=== PATIENT | male | born 1945 | race Caucasian/White ===

== ENCOUNTER 2018-10-05 17:09 | Emergency (ER) | payer MEDICARE, OTHER ==
[2018-10-05 17:22] VITALS: BP 141/83
--- NOTE | 2018-10-05 17:41 | ER Document Report ---
ED Medical Screen (RME) - General Chief Complaint: Headache Stated Complaint: HEADACHE, NECK NUMBNESS Time Seen by Provider: 10/05/18 17:25 Primary Care Provider: JAMES MCDONNELL MD [Primary Care Provider] - Follow up as needed Mode of Arrival: Ambulatory Information source: Patient Notes: 73-year-old male presents to ED for complex migraines with a headache for 8 days with pain down his neck headache tightness in the right side of his jaw numbness to his right arm and leg sometimes the last 3 minutes sometimes up to 10 minutes and there off and on for the last 8 days sometimes he has as many as 2 a day. He states he has a history of A. fib and complex migraines but he has not seen a neurologist in at least 20 years. Blood work and head CT have been ordered patient is neurologically intact at this time. I have greeted and performed a rapid initial assessment of this patient. A comprehensive ED assessment and evaluation of the patient, analysis of test results and completion of medical decision making process will be conducted by an additional ED providers. TRAVEL OUTSIDE OF THE [place] IN LAST 30 DAYS: No - Related Data Allergies/Adverse Reactions: Penicillins Allergy (Verified 01/03/15 21:03) HIVES, ITCHING diphenhydramine HCl [From Benadryl] Adverse Reaction (Verified 01/03/15 21:03) Hyperactivity doxycycline [Doxycycline] Adverse Reaction (Verified 01/03/15 21:03) N/V AMNESIA sulfamethoxazole [From Septra] Adverse Reaction (Verified 01/03/15 21:03) NAUEOUS trimethoprim [From Septra] Adverse Reaction (Verified 01/03/15 21:03) NAUEOUS Past Medical History - Past Medical History Cardiac Medical History: Denies: Hx Heart Attack, Hx Hypertension Pulmonary Medical History: Denies: Hx Asthma Neurological Medical History: Denies: Hx Cerebrovascular Accident, Hx Seizures GI Medical History: Reports: Hx Ulcer - 1986. Denies: Hx Hepatitis, Hx Hiatal Hernia Infectious Medical History: Denies: Hx Hepatitis Past Surgical History: Denies: Hx Open Heart Surgery, Hx Pacemaker - Immunizations Hx Diphtheria, Pertussis, Tetanus Vaccination: No Physical Exam - Vital signs Vitals: Temp Pulse Resp BP Pulse Ox 98.3 F 70 16 141/83 H 96 10/05/18 17:21 10/05/18 17:21 10/05/18 17:21 10/05/18 17:21 10/05/18 17:21 Course - Vital Signs Vital signs: Temp Pulse Resp BP Pulse Ox 98.3 F 70 16 141/83 H 96 10/05/18 17:21 10/05/18 17:21 10/05/18 17:21 10/05/18 17:21 10/05/18 17:21 Doctor's Discharge - Discharge Referrals: JAMES MCDONNELL MD [Primary Care Provider] - Follow up as needed
[2018-10-05 18:16] LABS: ABSOLUTE EOSINOPHILS # (AUTO) 0.1 10^3/uL (0.0-0.6); ABSOLUTE LYMPHOCYTES (AUTO) 1.4 10^3/uL (0.5-4.7); ABSOLUTE MONOCYTES (AUTO) 0.5 10^3/uL (0.1-1.4); ABSOLUTE NEUT (AUTO) 2.7 10^3/uL (1.7-8.2); BASOPHILS % (AUTO) 0.9 % (0-2); EOSINOPHILS % (AUTO) 1.1 % (0-6); HEMATOCRIT 40.5 % (37.9-51.0); HEMOGLOBIN 13.9 g/dL (13.5-17.0); LYMPHOCYTES % (AUTO) 30.8 % (13-45); MEAN CORPUSCULAR HEMOGLOBIN 31.1 pg (27.0-33.4); MEAN CORPUSCULAR HGB CONC 34.4 g/dL (32.0-36.0); MEAN CORPUSCULAR VOLUME 91 fl (80-97); MONOCYTES % (AUTO) 10.2 % (3-13); PLATELET COUNT 266 10^3/uL (150-450); RED BLOOD COUNT 4.48 10^6/uL (4.35-5.55); RED CELL DISTRIBUTION WIDTH 13.1 % (11.5-14.0); TOTAL CELLS COUNTED % (AUTO) 100 %; WHITE BLOOD COUNT 4.7 10^3/uL (4.0-10.5)
[2018-10-05 18:20] LABS: APPEARANCE,URINE CLEAR; BILIRUBIN,URINE NEGATIVE (NEGATIVE); COLOR,URINE YELLOW; GLUCOSE, URINE NEGATIVE (NEGATIVE); KETONES,URINE NEGATIVE (NEGATIVE); LEUKOCYTE ESTERASE,URINE NEGATIVE (NEGATIVE); NITRITE,URINE NEGATIVE (NEGATIVE); PROTEIN,URINE NEGATIVE (NEGATIVE); URINE SPECIFIC GRAVITY 1.014; UROBILINOGEN,URINE NEGATIVE mg/dL (<2.0)
--- NOTE | 2018-10-05 18:20 | RADIOLOGY REPORT (SQ) ---
EXAM DESCRIPTION: CT HEAD WITHOUT COMPLETED DATE/TIME: 10/05/2018 6:09 pm REASON FOR STUDY: Lightheaded dizzy numbness hx complex migraines COMPARISON: None. TECHNIQUE: Axial images acquired through the brain without intravenous contrast. Images reviewed wi th bone, brain and subdural windows. Images stored on PACS. All CT scanners at this facility use dose modulation, iterative reconstruction, and/or weight based d osing when appropriate to reduce radiation dose to as low as reasonably achievable (ALARA). [facility]: Dose Right [facility]: CareDose [facility]: Dose Right [facility]: Teradose 4D [facility]: Smart YingYang RADIATION DOSE: CT Rad equipment meets quality standard of care and radiation dose reduction techniq ues were employed. CTDIvol: 53.2 mGy. DLP: 1124 mGy-cm. mGy. LIMITATIONS: None. FINDINGS: VENTRICLES: Normal size and contour. CEREBRUM: No masses. No hemorrhage. No midline shift. No evidence for acute infarction. Normal gra y/white matter differentiation. No areas of low density in the white matter. CEREBELLUM: No masses. No hemorrhage. No alteration of density. No evidence for acute infarction. EXTRAAXIAL SPACES: No fluid collections. No masses. ORBITS AND GLOBE: No intra- or extraconal masses. Normal contour of globe without masses. CALVARIUM: No fracture. PARANASAL SINUSES: No fluid or mucosal thickening. SOFT TISSUES: No mass or hematoma. OTHER: No other significant finding. IMPRESSION: No acute intracranial findings. EVIDENCE OF ACUTE STROKE: NO. COMMENT: Quality ID # [id number]: Final reports with documentation of one or more dose reduction techniques (e.g., Automated exposure control, adjustment of the mA and/or kV according to patient size, use of iterative reconstruction technique) TECHNICAL DOCUMENTATION: JOB ID: [id number] [place]-72 2010 [employer]- All Rights Reserved Reading location - IP/workstation name: [email or web address]
[2018-10-05 18:33] LABS: ALANINE AMINOTRANSFERASE 34 U/L (21-72); ALBUMIN 4.1 g/dL (3.5-5.0); ALKALINE PHOSPHATASE 96 U/L (38-126); ANION GAP 11 (5-19); ASPARTATE AMINO TRANSFERASE 31 U/L (17-59); BILIRUBIN,DIRECT 0.2 mg/dL (0.0-0.4); BILIRUBIN,TOTAL 0.5 mg/dL (0.2-1.3); BLOOD UREA NITROGEN 19 mg/dL (7-20); CALCIUM 9.4 mg/dL (8.4-10.2); CARBON DIOXIDE 26 mmol/L (22-30); CHLORIDE 95 mmol/L (98-107); GLUCOSE 113 mg/dL (75-110); POTASSIUM 4.1 mmol/L (3.6-5.0); SODIUM 131.8 mmol/L (137-145); TOTAL PROTEIN 7.1 g/dL (6.3-8.2)
[2018-10-05 18:45] LABS: CREATINE KINASE MB 2.64 ng/mL (<4.55); TROPONIN I < 0.012 ng/mL
--- NOTE | 2018-10-05 19:51 | ER Document Report ---
ED Headache - General Chief Complaint: Headache Stated Complaint: HEADACHE, NECK NUMBNESS Time Seen by Provider: 10/05/18 17:25 Primary Care Provider: JAMES MCDONNELL MD [Primary Care Provider] - Follow up as needed Mode of Arrival: Ambulatory TRAVEL OUTSIDE OF THE [place] IN LAST 30 DAYS: No - HPI Notes: Patient is a 73-year-old male that presents to the emergency department for chief complaint of headache. Patient reports history of migraine headaches for the last 30 years. He states he gets them at least every few months and occasionally he will have a few in a week period of time. Patient states that he has had increased frequency of his migraine headaches over the last week. He states that he has known food triggers as well as steroids and was recently started on steroid eyedrops for cataract surgery which he believes may be triggering his migraines. He states that he is having a diffuse dull achiness mostly on the top of his head. He states that he usually has some form of vision loss and dizziness with the headaches which has also occurred. Patient states that he has a new numbness on the right side of his face and proximal right arm which is why he came to the emergency room. This numbness occurred yesterday and today. He states it lasts for 1 to 2 minutes and then completely resolves. Patient was recently diagnosed with atrial fibrillation and is not anticoagulated. He denies any associated chest pain, palpitations, shortness of breath. Patient does state that this feels like his chronic migraines but he has not had the numbness previously. He does state that he has children who experienced this symptom with her migraines. He denies history of stroke in the past. Currently he states that he only has a mild dull ache on the top of his head with no associated vision changes, dizziness numbness or weakness. Past Medical History: Atrial fibrillation Past Surgical History: Neck surgery Social History: Denies drugs alcohol and tobacco Family History: Reviewed and noncontributory for presenting illness Allergies: Reviewed, see documented allergy list. REVIEW OF SYSTEMS: CONSTITUTIONAL : No fever No chills No diaphoresis No recent illness EENT: No vision changes No congestion No sore throat CARDIOVASCULAR: No chest pain No palpitations RESPIRATORY: No shortness of breath No cough No difficulty breathing GASTROINTESTINAL: No abdominal pain No nausea No vomiting No diarrhea GENITOURINARY: No dysuria No hematuria No difficulty urinating MUSCULOSKELETAL: No back pain No leg pain No arm pain SKIN: No rashes No lesions LYMPHATIC: No swollen, enlarged glands. NEUROLOGICAL: Dizziness No lightheadedness headache No weakness paresthesias PSYCHIATRIC: No anxiety No depression PHYSICAL EXAMINATION: Vital signs reviewed, nursing noted reviewed. GENERAL: Well-appearing, well-nourished and in no acute distress. HEAD: Atraumatic, normocephalic. EYES: Eyes appear normal, extraocular movements intact, sclera anicteric, conjunctiva are normal. ENT: nares patent, oropharynx clear without exudates. Moist mucous membranes. NECK: Normal range of motion, supple without lymphadenopathy LUNGS: Breath sounds clear to auscultation bilaterally and equal. No wheezes rales or rhonchi. HEART: Regular rate and rhythm without murmurs ABDOMEN: Soft, nontender, normoactive bowel sounds. No rebound, guarding, or rigidity. No masses appreciated. EXTREMITIES: Nontender, good range of motion, no pitting or edema. NEUROLOGICAL: NIH=0, No ataxia, normal gait. No focal neurological deficits. Moves all extremities spontaneously Motor and sensory grossly intact on exam. PSYCH: Normal mood, normal affect. SKIN: Warm, Dry, normal turgor, no rashes or lesions noted on exposed skin - Related Data Allergies/Adverse Reactions: Penicillins Allergy (Verified 01/03/15 21:03) HIVES, ITCHING diphenhydramine HCl [From Benadryl] Adverse Reaction (Verified 01/03/15 21:03) Hyperactivity doxycycline [Doxycycline] Adverse Reaction (Verified 01/03/15 21:03) N/V AMNESIA sulfamethoxazole [From Septra] Adverse Reaction (Verified 01/03/15 21:03) NAUEOUS trimethoprim [From Septra] Adverse Reaction (Verified 01/03/15 21:03) NAUEOUS Past Medical History - General Information source: Patient - Social History Smoking Status: Never Smoker Chew tobacco use (# tins/day): No Frequency of alcohol use: None Drug Abuse: None Family History: Reviewed & Not Pertinent Patient has suicidal ideation: No Patient has homicidal ideation: No - Past Medical History Cardiac Medical History: Denies: Hx Heart Attack, Hx Hypertension Pulmonary Medical History: Denies: Hx Asthma Neurological Medical History: Denies: Hx Cerebrovascular Accident, Hx Seizures Renal/ Medical History: Denies: Hx Peritoneal Dialysis GI Medical History: Reports: Hx Ulcer - 1986. Denies: Hx Hepatitis, Hx Hiatal Hernia Infectious Medical History: Denies: Hx Hepatitis Past Surgical History: Denies: Hx Open Heart Surgery, Hx Pacemaker - Immunizations Hx Diphtheria, Pertussis, Tetanus Vaccination: No Physical Exam - Vital signs Vitals: Temp Pulse Resp BP Pulse Ox 98.3 F 70 16 141/83 H 96 10/05/18 17:21 10/05/18 17:21 10/05/18 17:21 10/05/18 17:21 10/05/18 17:21 Course - Re-evaluation Re-evalutation: 10/05/18 19:49 Vitals reviewed. Nursing notes reviewed. Patient currently has no focal neurologic deficits. He states his headache is mild and does not wish to have any further medication in the emergency room. He states usually Tylenol helps with headache. He has not seen a neurologist in at least 20 years and I did discuss with him the need for following with neurology. His work-up today shows a mild hyponatremia but is otherwise unremarkable. He has a normal CT scan with no intracranial hemorrhage or stroke. Patients symptoms are likely related to his complex migraines which are being triggered by the new steroid drops he is using. We did discuss his risk of stroke including age and atrial fibrillation. I offered patient inpatient evaluation and MRI however he does not wish to be admitted to the hospital. I feel this is a reasonable plan of care since he is currently not expressing any neurologic deficits. I did discuss return precautions as well as close follow-up with a neurologist which she will be referred to. Patient in agreement with plan of care and stable at discharge Laboratory 10/05/18 10/05/18 10/05/18 17:50 17:50 17:50 WBC 4.7 RBC 4.48 Hgb 13.9 Hct 40.5 MCV 91 MCH 31.1 MCHC 34.4 RDW 13.1 Plt Count 266 Seg Neutrophils % 57.0 Lymphocytes % 30.8 Monocytes % 10.2 Eosinophils % 1.1 Basophils % 0.9 Absolute Neutrophils 2.7 Absolute Lymphocytes 1.4 Absolute Monocytes 0.5 Absolute Eosinophils 0.1 Absolute Basophils 0.0 Sodium 131.8 L Potassium 4.1 Chloride 95 L Carbon Dioxide 26 Anion Gap 11 BUN 19 Creatinine 0.64 Est GFR ( Amer) > 60 Est GFR (Non-Af Amer) > 60 Glucose 113 H Calcium 9.4 Total Bilirubin 0.5 Direct Bilirubin 0.2 Neonat Total Bilirubin Not Reportable Neonat Direct Bilirubin Not Reportable Neonat Indirect Bili Not Reportable AST 31 ALT 34 Alkaline Phosphatase 96 CK-MB (CK-2) 2.64 Troponin I < 0.012 Total Protein 7.1 Albumin 4.1 Urine Color Urine Appearance Urine pH Ur Specific [place] Urine Protein Urine Glucose (UA) Urine Ketones Urine Blood Urine Nitrite Urine Bilirubin Urine Urobilinogen Ur Leukocyte Esterase Urine WBC (Auto) Urine RBC (Auto) Urine Mucus (Auto) Urine Ascorbic Acid 10/05/18 17:50 WBC RBC Hgb Hct MCV MCH MCHC RDW Plt Count Seg Neutrophils % Lymphocytes % Monocytes % Eosinophils % Basophils % Absolute Neutrophils Absolute Lymphocytes Absolute Monocytes Absolute Eosinophils Absolute Basophils Sodium Potassium Chloride Carbon Dioxide Anion Gap BUN Creatinine Est GFR ( Amer) Est GFR (Non-Af Amer) Glucose Calcium Total Bilirubin Direct Bilirubin Neonat Total Bilirubin Neonat Direct Bilirubin Neonat Indirect Bili AST ALT Alkaline Phosphatase CK-MB (CK-2) Troponin I Total Protein Albumin Urine Color YELLOW Urine Appearance CLEAR Urine pH 6.0 Ur Specific [place] 1.014 Urine Protein NEGATIVE Urine Glucose (UA) NEGATIVE Urine Ketones NEGATIVE Urine Blood NEGATIVE Urine Nitrite NEGATIVE Urine Bilirubin NEGATIVE Urine Urobilinogen NEGATIVE Ur Leukocyte Esterase NEGATIVE Urine WBC (Auto) 1 Urine RBC (Auto) 1 Urine Mucus (Auto) RARE Urine Ascorbic Acid [address] 10/05/18 17:38 IMPRESSION: No acute intracranial findings. EVIDENCE OF ACUTE STROKE: NO. - Vital Signs Vital signs: Temp Pulse Resp BP Pulse Ox 98.3 F 70 16 141/83 H 96 10/05/18 17:21 10/05/18 17:21 10/05/18 17:21 10/05/18 17:21 10/05/18 17:21 - Laboratory Result Diagrams: 10/05/18 17:50 10/05/18 17:50 Laboratory results interpreted by me: 10/05/18 10/05/18 17:50 17:50 Sodium 131.8 L Chloride 95 L Glucose 113 H Urine Ascorbic Acid 40 H Discharge - Discharge Clinical Impression: Migraine headache Qualifiers: Migraine type: other Status migrainosus presence: without status migrainosus Intractability: not intractable Qualified Code(s): G43.809 - Other migraine, not intractable, without status migrainosus Condition: Stable Disposition: HOME, SELF-CARE Instructions: Headache ([facility]) Additional Instructions: Please return to the emergency department if you have any worsening, or concern of your symptoms. Please return to the emergency department if you develop chest pain, difficulty breathing, severe abdominal pain, or ongoing vomiting. Please follow-up with your primary care physician in 2-3 days and any other recommended physicians. If prescribed, take all medications as directed. If you have any questions or concerns do not hesitate to return the emergency department for evaluation. Referrals: JAMES MCDONNELL MD [Primary Care Provider] - Follow up as needed BASHIR MAKI MD [NO LOCAL MD] - Follow up in 3-5 days
== END 2018-10-05 20:23 | disposition home or self-care (01) ==
LOC: ER 17:09
DX: G43.809 Other migraine, not intractable, without status migrainosus (principal); R20.0 Anesthesia of skin; R35.0 Frequency of micturition; I48.91 Unspecified atrial fibrillation
CPT/HCPCS: 36415; 70450; 80053; 81001; 82553; 84484; 85025; 99284